=== PATIENT | female | born 1995 | race Caucasian/White ===

== ENCOUNTER 2021-01-01 21:41 | Emergency (ER) | payer OTHER ==
[~2021-01-01] VITALS: Ht 162.6 cm; Wt 77.5 kg
[2021-01-01 21:57] VITALS: BP 110/68
[2021-01-01] MEDS ORDERED: KETOROLAC 30 MG/1 ML ONE (22:16)
[2021-01-01] MEDS ORDERED: LIDOCAINE-MPF 1%, 5ML ONE (22:16)
[2021-01-01] MEDS ORDERED: KETOROLAC 30 MG/1 ML IM ONE (22:30)
[2021-01-01] MEDS ORDERED: LIDOCAINE-MPF 1%, 5ML INFIL ONE (22:30)
== END 2021-01-02 00:46 | disposition home or self-care (01) ==
LOC: ED 22:49
DX: S81.011A Laceration without foreign body, right knee, initial encounter (principal); S80.811A Abrasion, right lower leg, initial encounter; W18.30XA Fall on same level, unspecified, initial encounter; Y93.89 Activity, other specified; Y92.69 Other specified industrial and construction area as the place of occurrence of the external cause; Y99.8 Other external cause status
CPT/HCPCS: 12002; 73564; 73590; 96374; 99284; J1885